=== PATIENT | female | born 1990 | race Caucasian/White ===

== ENCOUNTER 2020-09-23 15:47 | Outpatient (CLI) | payer MEDICAID ==
[~2020-09-23 15:47] MED LIST: OMNIPAQUE 350 MG/ML, 100ML BOTTLE ONE
== END 2020-09-23 23:59 | disposition home or self-care (01) ==
LOC: EDSEX 15:47 → RAD 15:47
PROVIDERS: ATTEND Physician Assistant
DX: J06.9 Acute upper respiratory infection, unspecified (principal)
CPT/HCPCS: 71260; Q9967